=== PATIENT | female | born 1980 | race Hispanic/Latino ===

== ENCOUNTER 2017-09-10 12:55 | Emergency (ER) | payer SELFPAY ==
[~2017-09-10] VITALS: Ht 162.6 cm; Wt 94.3 kg
[~2017-09-10 12:55] MED LIST: Z.0.LISINOPRIL10 MG PO; Z.0.TIROSINT75 MCG PO; Z.0.XANAX2 MG PO
--- OUTSIDE RECORDS SUMMARY | 2017-09-10 12:57 | XMS REPORT ---
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 Allergies, Adverse Reactions, Alerts This patient has no known allergies or adverse reactions. Medications This patient has no known medications. Encounters Start Date/Time End Date/Time Encounter Type Admission Type Attending [facility] Facility Care Department Encounter ID 2017-05-09 00:00:00 2017-05-09 00:00:00 [facility]patient [facility] [id number]
[2017-09-10] MEDS ORDERED: ONDANSETRON HCL INJ 2 MG/ML VIAL IV STA (13:13)
[2017-09-10] MEDS ORDERED: SODIUM CHLORIDE 0.9% 1000ML 1,000 ML IV STA (13:13)
[2017-09-10] MEDS ORDERED: MORPHINE SULFATE 4 MG/ML SYR IV STA (13:13)
[2017-09-10 14:31] LABS: BASOPHILS # (AUTO) 0.1 (0.0-0.1); BASOPHILS % 1.1 % (0.0-1.0); EOSINOPHILS # (AUTO) 0.2 (0.0-0.4); EOSINOPHILS % 4.4 % (0.0-6.0); HEMATOCRIT 38.4 % (34.2-44.1); HEMOGLOBIN 12.5 g/dL (12.0-16.0); LYMPHOCYTES # (AUTO) 2.2 (1.0-3.2); LYMPHOCYTES % 40.1 % (18.0-39.1); MEAN CORPUSCULAR HEMOGLOBIN 29.3 pg (28-32); MEAN CORPUSCULAR HGB CONC 32.6 g/dL (31-35); MEAN CORPUSCULAR VOLUME 89.9 fL (81-99); MONOCYTES # (AUTO) 0.7 (0.2-0.8); MONOCYTES % 12.8 % (4.4-11.3); NEUTROPHILS # (AUTO) 2.3 (2.1-6.9); NEUTROPHILS % 41.1 % (38.7-80.0); PLATELET COUNT 210 x10e3/uL (140-360); RED BLOOD COUNT 4.27 x10e6/uL (3.6-5.1); RED CELL DISTRIBUTION WIDTH 14.6 % (11.7-14.4)
[2017-09-10 14:45] LABS: ALANINE AMINOTRANSFERASE 18 IU/L (0-55); ALBUMIN 3.4 g/dL (3.5-5.0); ALBUMIN/GLOBULIN RATIO 0.7 (0.8-2.0); ALKALINE PHOSPHATASE 106 IU/L (40-150); AMYLASE 114 U/L (25-125); ANION GAP 12.8 mmol/L (8-16); BLOOD UREA NITROGEN 6 mg/dL (7-26); BUN/CREATININE RATIO 8 (6-25); CALCIUM 8.6 mg/dL (8.4-10.2); CARBON DIOXIDE 21 mmol/L (22-29); CHLORIDE 106 mmol/L (98-107); CREATININE, SERUM 0.73 mg/dL (0.57-1.11); EST GLOMERULAR FILTRATION RATE > 60 ML/MIN (60-); GLUCOSE 196 mg/dL (74-118); LIPASE 59 U/L (8-78); POTASSIUM 3.8 mmol/L (3.5-5.1); SODIUM 136 mmol/L (136-145)
--- NOTE | 2017-09-10 15:02 | Diagnostic Imaging Report ---
PROCEDURE: CT ABDOMEN AND PELVIS WITHOUT CONTRAST TECHNIQUE: The abdomen and pelvis were scanned utilizing a multidetector helical scanner from the diaphragm to the lesser trochanter after the oral administration of water. No IV contrast was administered because of stone protocol. Coronal and sagittal multiplanar reformations were obtained. DLP: 767.7 mGy-cm COMPARISON: None. INDICATIONS: STONES KIDNEY, HEMATURIA FINDINGS: ABSENCE OF INTRAVENOUS CONTRAST DECREASES SENSITIVITY FOR DETECTION OF FOCAL LESIONS AND VASCULAR PATHOLOGY. LOWER THORAX: Normal. HEPATOBILIARY: No suspicious contour abnormalities. No biliary ductal dilatation. SPLEEN: No splenomegaly. PANCREAS: No suspicious contour abnormalities or ductal dilatation. ADRENALS: No adrenal nodules. KIDNEYS/URETERS: No hydronephrosis, stones, or suspicious contour abnormalities. PELVIC ORGANS/BLADDER: No bladder stones. A right sided tubal ligation clips is noted in the right adnexum. A second tubal ligation clips is noted in the right posterior pelvis (series 3 image 145), separate from the left adnexum. The left ovary is difficult to separate from the adjacent uterus in the absence of contrast. Multiple phleboliths in the pelvis. PERITONEUM / RETROPERITONEUM: No free air or fluid. LYMPH NODES: No lymphadenopathy. VESSELS: Unremarkable. GI TRACT: No distention or wall thickening. The appendix is normal. Post surgical changes related to gastric sleeve. Small hiatal hernia is noted containing a small portion of the gastric suture. BONES AND SOFT TISSUES: Fat-containing supraumbilical ventral hernia is located approximately 11-12 cm above the umbilicus. Hernia sac measures approximately 3.4 x 1.9 x 2.5 cm with 1.5 cm abdominal wall defect. IMPRESSION: 1. No nephrolithiasis. No acute non-contrast CT abnormalities. 2. Tubal ligation clip appears to have slipped off the left adnexa and is currently in the right pelvis. Consider counseling patient on alterative contraception. 3. Gastric sleeve. Small hiatal hernia. 4. Small fat containing supraumbilical ventral hernia. Dictated by: Luis Nguyen M.D. on 09/10/2017 at 15:11 Electronically approved by: Luis Nguyen M.D. on 09/10/2017 at 15:11
[2017-09-10 15:41] LABS: BILIRUBIN,URINE 1+ (NEGATIVE); KETONES,URINE NEGATIVE (NEGATIVE); LEUKOCYTE ESTERASE ,URINE TRACE (NEGATIVE); PROTEIN,URINE DIPSTICK NEGATIVE (NEGATIVE); URINE UROBILINOGEN 4 mg/dL (0.2 - 1)
[2017-09-10 15:43] LABS: CLARITY,URINE CLEAR (CLEAR); COLOR,URINE ORANGE (YELLOW); NITRITE,URINE POSITIVE (NEGATIVE)
[2017-09-10 16:00] LABS: BACTERIA,URINE MODERATE /HPF; EPITHELIAL CELLS,URINE MODERATE /LPF; WBC,URINE (MAN) 0-5 /HPF (0-5)
[2017-09-10] MEDS ORDERED: CEFTRIAXONE SOD 1 GM VIAL ONE (16:12)
[2017-09-10] MEDS ORDERED: CEFTRIAXONE SOD 1 GM VIAL IV ONE (16:15)
[2017-09-10] MEDS ORDERED: ULTRAM 50MG50 MG PO (16:26)
[2017-09-10] MEDS ORDERED: ZOFRAN ODT4 MG SL (16:27)
== END 2017-09-10 16:56 | disposition home or self-care (01) ==
LOC: ER 12:55
DX: R10.30 Lower abdominal pain, unspecified (principal); N10 Acute pyelonephritis; I10 Essential (primary) hypertension; E03.9 Hypothyroidism, unspecified; K44.9 Diaphragmatic hernia without obstruction or gangrene
CPT/HCPCS: 36415; 74176; 80053; 81001; 82150; 83690; 84702; 85025; 87086; 99284; J0696; J2405; J7030

== ENCOUNTER 2018-07-27 05:24 | Observation (INO) | payer SELFPAY ==
[2018-07-26 17:08] LABS: BASOPHILS # (AUTO) 0.1 (0.0-0.1); EOSINOPHILS # (AUTO) 0.3 (0.0-0.4); EOSINOPHILS % 3.9 % (0.0-6.0); HEMATOCRIT 37.3 % (34.2-44.1); HEMOGLOBIN 12.5 g/dL (12.0-16.0); LYMPHOCYTES # (AUTO) 3.4 (1.0-3.2); LYMPHOCYTES % 47.3 % (18.0-39.1); MEAN CORPUSCULAR HEMOGLOBIN 26.9 pg (28-32); MEAN CORPUSCULAR HGB CONC 33.5 g/dL (31-35); MEAN CORPUSCULAR VOLUME 80.4 fL (81-99); MONOCYTES # (AUTO) 0.6 (0.2-0.8); MONOCYTES % 8.8 % (4.4-11.3); NEUTROPHILS # (AUTO) 2.8 (2.1-6.9); NEUTROPHILS % 38.9 % (38.7-80.0); PLATELET COUNT 273 x10e3/uL (140-360); RED BLOOD COUNT 4.64 x10e6/uL (3.6-5.1); RED CELL DISTRIBUTION WIDTH 14.1 % (11.7-14.4)
[2018-07-26 17:25] LABS: ALANINE AMINOTRANSFERASE 32 IU/L (0-55); ALBUMIN 3.5 g/dL (3.5-5.0); ALBUMIN/GLOBULIN RATIO 0.7 (0.8-2.0); ALKALINE PHOSPHATASE 154 IU/L (40-150); ANION GAP 16.8 mmol/L (8-16); BLOOD UREA NITROGEN 6 mg/dL (7-26); BUN/CREATININE RATIO 8 (6-25); CALCIUM 9.5 mg/dL (8.4-10.2); CARBON DIOXIDE 22 mmol/L (22-29); CHLORIDE 99 mmol/L (98-107); CREATININE, SERUM 0.79 mg/dL (0.57-1.11); EST GLOMERULAR FILTRATION RATE > 60 ML/MIN (60-); GLUCOSE 325 mg/dL (74-118); POTASSIUM 3.8 mmol/L (3.5-5.1); SODIUM 134 mmol/L (136-145)
[~2018-07-27] VITALS: Ht 162.6 cm; Wt 100.7 kg
[~2018-07-27 05:24] MED LIST changes: +COQ10 PO; +MAGNESIUM27 MG; +MULTI-VITAMIN1 EACH; +OMEGA 3 6 9 PO; +TURMERIC1 GM PO; +ULTRAM 50MG50 MG PO; +ZOFRAN ODT4 MG SL
[2018-07-27] MEDS ORDERED: METHYLENE BLUE 1% INJ 10 ML VIAL INJ ONE (06:49)
[2018-07-27] MEDS ORDERED: BUPIVACAINE 0.5%/EPI 30 ML SDV INJ ONE (06:49)
[2018-07-27] MEDS ORDERED: BUPIVACAINE 0.25%/EPI 30ML SDV INJ ONE (06:49)
[2018-07-27] MEDS ORDERED: VASOPRESSIN INJ 20 UNIT/ML VIAL INJ ONE (06:56)
[2018-07-27] MEDS ORDERED: INSULIN REGULAR, HUMAN 100 UNIT/1 ML 3ML VIAL ONE ×2 (06:59→10:35)
[2018-07-27] MEDS ORDERED: SODIUM CHLORIDE 0.9% 100 ML ONE (07:12)
[2018-07-27] MEDS ORDERED: FENTANYL CITRATE/PF 100MCG/2 ML INJ ONE ×2 (10:22→19:51)
[2018-07-27] MEDS ORDERED: MEPERIDINE HCL INJ 50 MG/ML INJ ONE (10:48)
[2018-07-27] MEDS ORDERED: PROMETHAZINE 12.5MG/ NACL 0.9% 12.5 MG/50 ML BAG IV PRN (11:00)
[2018-07-27 11:20] VITALS: BP 122/75
--- NOTE | 2018-07-27 11:20 | NUR ---
Received patient from PACU via stretcher. AAOX4 to time, person, place, situation. Respirations even and unlabored. O2 2L NC. Lower abdomen site clean, dry, and intact. Well approximated. No drainage noted. Oriented patient to room. Instructed to use call light for assistance. Voiced understanding.
[2018-07-27] MEDS: LACTATED RINGER'S 1,000 ML IV SCH ×2 (11:30→19:13)
[2018-07-27 12:00] VITALS: BP 122/75
[2018-07-27] MEDS: KETOROLAC TROMETHAMINE 30 MG/ML VIAL IM PRN (12:00)
[2018-07-27 12:29] VITALS: BP 122/75
--- NOTE | 2018-07-27 13:33 | Operative Report ---
DATE OF PROCEDURE: July 27, 2018 PREOPERATIVE DIAGNOSIS: Requesting reversal of tubal ligation. POSTOPERATIVE DIAGNOSIS: Requesting reversal of tubal ligation. OPERATION PERFORMED: Reversal of bilateral tubal ligation. COMPLICATIONS: None. ESTIMATED BLOOD LOSS: 50 mL. PROCEDURE: The patient was taken to the OR where general anesthesia was placed. She was prepped and draped in the normal sterile fashion and placed in the dorsal lithotomy position. After placing a HUMI self-retaining uterine manipulator through the cervix and connecting it to diluted methylene blue, balloon was inflated with 10 mL of air. Gloves were changed, and a small Pfannenstiel skin incision was made suprapubically. Subcutaneous tissue was dissected with a Bovie until the rectus fascia was reached and was opened in the midline. The same was repeated on the other side. The upper and lower flaps of the fascia were dissected off the underlying muscles using both sharp and blunt dissection. The midline was identified and the peritoneum entered using the stretch of 2 fingers. Chang retractor was placed inside the pelvis, and the abdominal contents were retracted upwards using moist laps. Two Babcocks were applied on the 2 ends of the right tube, and a Filshie clip in between was noted. Using the Bovie on the mesosalpinx, the Filshie clip was freed and removed. The left tube showed evidence of scarring and blockage but no evidence of the Filshie clip, which would not be seen anywhere in the vicinity of the uterus. The medial portion of the fallopian tube was opened with microscopic scissors, and methylene blue was injected and free flow of the methylene blue was noted from the medial portion of the right tube. The left tube blockage also was excised, and a lacrimal duct dilator was passed through the fimbriated end into the medial portion of the fallopian tube. The fallopian tube was repaired using Prolene 6-0. Sutures were applied at 6 o'clock, 3 and 9 o'clock, and another suture was placed at 12 o'clock. The mesosalpinx was closed with the same material. Removal of the lacrimal duct dilator was performed, and with injection of the methylene blue, the dye came through the fimbriated end of the right tube. Now attention was made to the left tube where the blockage on the medial portion of the tube was excised, methylene blue injected, and free flow of the methylene blue was noted. Pitressin was injected in the mesosalpinx, and that was also injected on the right tube, before manipulating either tube, to achieve hemostasis. Following this, the left lateral part of the tube blockage was excised with the microscopic scissors, and the lumen of the tube was noted and the 2 ends of the tubes were approximated by Prolene 6-0 sutures. First suture was applied at 6 o'clock, and then 3 other sutures were applied at 3, 9 and 12 o'clock on the fallopian tube. Also the mesosalpinx was closed with the same material. Suction irrigation of the peritoneal cavity with warm saline. Injection of the dye showed free flow of the dye from the left fimbriated end of the tube. Following this, the rectus fascia approximated using PDS 0, subcutaneous fat was approximated with catgut 2-0 sutures, and the skin was closed with Monocryl 4-0 and Dermabond was applied. Patient tolerated the procedure well. Marcaine with epinephrine was injected subcutaneously. Laps, instrument and needle counts were correct x2 at the end of the procedure. Job#: [id number]
[2018-07-27] MEDS: MEPERIDINE HCL INJ 25 MG/ML VIAL IV PRN ×3 (13:58→22:07)
--- NOTE | 2018-07-27 14:00 | NUR ---
Patient voided. Denies any discomfort.
[2018-07-27] MEDS ORDERED: DEXTROSE 50% SYRINGE 50 ML IV PRN (15:00)
[2018-07-27 16:52] VITALS: BP 110/55
[2018-07-27] MEDS: INSULIN REGULAR, HUMAN 100 UNIT/1 ML 3ML VIAL SQ SCH ×2 (17:03→21:00)
--- NOTE | 2018-07-27 18:30 | NUR ---
Resting in bed, family at bedside. No s/s of acute distress noted. Report to be given to oncoming nurse.
--- NOTE | 2018-07-27 19:00 | NUR ---
REPORT RECEIVED FROM OFF GOING NURSE, PT RESTING IN BED ALERT AND ORIENTED, BED LOCKED AND LOW, FAMILY AT BEDSIDE, IV INFUSING PER ORDER, INCISION TO LOWER ABD APPROXIMATED WITH NO COMPLICATIONS NOTED, CALL LIGHT IN REACH, INSTRUCTED TO CALL WITH NEEDS
[2018-07-27] MEDS ORDERED: ROCURONIUM BROMIDE 10 MG/ML 5ML VIAL ONE (19:17)
[2018-07-27] MEDS ORDERED: SEVOFLURANE INHAL SOLN 250 ML PEN BTL ONE (19:17)
[2018-07-27] MEDS ORDERED: CEFAZOLIN SOD 1 GM VIAL ONE (19:17)
[2018-07-27] MEDS ORDERED: NEOSTIGMINE 5 MG/5ML SYR ONE (19:17)
[2018-07-27] MEDS ORDERED: ACETAMINOPHEN 1000 MG/100 ML IV ONE (19:17)
[2018-07-27] MEDS ORDERED: KETOROLAC TROMETHAMINE 30 MG/ML VIAL ONE (19:17)
[2018-07-27] MEDS ORDERED: GLYCOPYRROLATE INJ 1MG/ 5 ML SYR ONE (19:17)
[2018-07-27] MEDS ORDERED: LIDOCAINE HCL 2% LOCAL INJ 5 ML SDV VIAL INJ ONE (19:17)
[2018-07-27] MEDS ORDERED: PROPOFOL IV EMULSION 10 MG/ML 20 ML VIAL ONE (19:17)
[2018-07-27] MEDS ORDERED: ONDANSETRON HCL INJ 2 MG/ML VIAL ONE (19:17)
[2018-07-27] MEDS ORDERED: MIDAZOLAM HCL 2 MG/2 ML VIAL ONE (19:51)
[2018-07-27 20:00] VITALS: BP 101/61
--- NOTE | 2018-07-27 21:30 | NUR ---
PRN GIVEN FOR TEMP OF 100.9
[2018-07-27] MEDS: ACETAMINOPHEN 325 MG TAB PO PRN (21:32)
--- NOTE | 2018-07-27 22:08 | NUR ---
PRN GIVEN FOR PAIN
[2018-07-28] VITALS: BP 93/57
[2018-07-28] MEDS: MEPERIDINE HCL INJ 25 MG/ML VIAL IV PRN ×4 (02:07→14:16)
[2018-07-28] MEDS: LACTATED RINGER'S 1,000 ML IV SCH ×2 (02:08→10:12)
--- NOTE | 2018-07-28 02:15 | NUR ---
PRN GIVEN FOR PAIN
[2018-07-28 04:00] VITALS: BP 115/65
[2018-07-28] MEDS ORDERED: LEVOTHYROXINE SODIUM 75 MCG TAB PO SCH (06:00)
[2018-07-28] MEDS ORDERED: NON-FORMULARY MEDICATION (Levothyroxine Sodium (Tirosint) 75 MCG) PO SCH (06:00)
--- NOTE | 2018-07-28 06:28 | NUR ---
PRN GIVEN FOR PAIN , PT RESTING IN BED ALERT AND ORIENTED, IV INFUSING PER ORDER, BED LOCKED AND LOW, NO DISTRESS NOTED, PT DENIES NEEDS, MOTHER WANTING TO ASSIST PT WITH BED BATH, SUPPLIES GIVEN, CALL LIGHT IN REACH, INSTRUCTED TO CALL WITH NEEDS
[2018-07-28] MEDS: KETOROLAC TROMETHAMINE 30 MG/ML VIAL IM PRN (07:39)
[2018-07-28 08:03] VITALS: BP 107/56
[2018-07-28 08:20] VITALS: BP 107/56
[2018-07-28 08:22] VITALS: BP 121/58
[2018-07-28] MEDS: INSULIN REGULAR, HUMAN 100 UNIT/1 ML 3ML VIAL SQ SCH ×3 (08:30→15:18)
[2018-07-28] MEDS ORDERED: ALPRAZOLAM 1 MG TAB PO SCH (09:00)
[2018-07-28] MEDS ORDERED: NON-FORMULARY MEDICATION (Alprazolam (Xanax) 2 MG) PO SCH (09:00)
[2018-07-28] MEDS ORDERED: MULTIVITAMINS/MINERALS TAB PO SCH (09:00)
[2018-07-28 12:03] VITALS: BP 111/69
[2018-07-28] MEDS ORDERED: TYLENOL WITH C1 EACH PO (14:58)
[2018-07-28] MEDS ORDERED: METFORMIN HCL500 MG PO (14:59)
--- NOTE | 2018-07-28 15:00 | NUR ---
md mendoza rounded. ok discharge at this time
--- NOTE | 2018-07-28 15:18 | NUR ---
discharge instructions and prescriptions given. pt verbalized understanding. iv dc pressure dressing applied and taped. pt is receiving insulin at this time for a 330 and eating a sandwich before going home
--- NOTE | 2018-07-28 15:30 | NUR ---
pt off unit via wheel chair to home
== END 2018-07-28 15:25 | disposition home or self-care (01) ==
LOC: OR 05:24 → PACU V 10:12 → MED/SURG 11:31
PROVIDERS: ADMIT Obstetrics & Gynecology; ATTEND Obstetrics & Gynecology
DX: Z31.0 Encounter for reversal of previous sterilization (principal); Z01.812 Encounter for preprocedural laboratory examination; Z28.21 Immunization not carried out because of patient refusal; F41.9 Anxiety disorder, unspecified; E03.9 Hypothyroidism, unspecified; Z86.39 Personal history of other endocrine, nutritional and metabolic disease
CPT/HCPCS: 36415 ×3; 58750; 80053; 81025; 82948 ×2; 85025; G0378 ×2; J0131; J0690; J1817; J1885 ×2; J2001; J2175 ×3; J2250; J2405; J2704; J3490; J7050; J7120 ×2

== ENCOUNTER 2018-09-12 17:34 | Emergency (ER) | payer SELFPAY ==
[~2018-09-12] VITALS: Ht 162.6 cm; Wt 98.9 kg
[~2018-09-12 17:34] MED LIST changes: +METFORMIN HCL500 MG PO; +TYLENOL WITH C1 EACH PO
[2018-09-12] MEDS ORDERED: ASPIRIN 81 MG CHEW TAB PO ONE (18:15)
[2018-09-12 18:20] LABS: BASOPHILS # (AUTO) 0.1 (0.0-0.1); BASOPHILS % 0.7 % (0.0-1.0); EOSINOPHILS # (AUTO) 0.2 (0.0-0.4); EOSINOPHILS % 2.2 % (0.0-6.0); HEMATOCRIT 36.6 % (34.2-44.1); HEMOGLOBIN 12.5 g/dL (12.0-16.0); LYMPHOCYTES % 41.5 % (18.0-39.1); MEAN CORPUSCULAR HEMOGLOBIN 26.7 pg (28-32); MEAN CORPUSCULAR HGB CONC 34.2 g/dL (31-35); MONOCYTES # (AUTO) 0.5 (0.2-0.8); MONOCYTES % 7.4 % (4.4-11.3); NEUTROPHILS # (AUTO) 3.5 (2.1-6.9); NEUTROPHILS % 47.9 % (38.7-80.0); PLATELET COUNT 284 x10e3/uL (140-360); RED BLOOD COUNT 4.69 x10e6/uL (3.6-5.1); RED CELL DISTRIBUTION WIDTH 15.6 % (11.7-14.4)
[2018-09-12 18:29] LABS: INR 0.81
[2018-09-12 18:30] LABS: PARTIAL THROMBOPLASTIN TIME 31.5 seconds (23.8-35.5)
[2018-09-12] MEDS ORDERED: KETOROLAC TROMETHAMINE 30 MG/ML VIAL IV ONE (18:30)
[2018-09-12 18:39] LABS: ALANINE AMINOTRANSFERASE 61 IU/L (0-55); ALBUMIN 3.6 g/dL (3.5-5.0); ALBUMIN/GLOBULIN RATIO 0.9 (0.8-2.0); ALKALINE PHOSPHATASE 118 IU/L (40-150); BLOOD UREA NITROGEN 9 mg/dL (7-26); BUN/CREATININE RATIO 12 (6-25); CALCIUM 9.5 mg/dL (8.4-10.2); CARBON DIOXIDE 22 mmol/L (22-29); CHLORIDE 102 mmol/L (98-107); CREATINE KINASE 96 IU/L (29-168); CREATININE, SERUM 0.77 mg/dL (0.57-1.11); EST GLOMERULAR FILTRATION RATE > 60 ML/MIN (60-); GLUCOSE 266 mg/dL (74-118); SODIUM 138 mmol/L (136-145)
--- NOTE | 2018-09-12 18:40 | Diagnostic Imaging Report ---
EXAM: XR CHEST 1 VIEW DATE: 09/12/2018 6:08 PM INDICATION: pain COMPARISON: None FINDINGS: Lines and Tubes: None Heart and Mediastinum: No acute cardiomediastinal findings. Lungs and Pleura: No significant pleural effusion, pneumothorax, or focal consolidation. Bones and Soft Tissues: No acute findings. IMPRESSION: 1. No acute cardiopulmonary findings. Signed by: Dr. Minesh Herrera MD on 09/12/2018 6:37 PM
--- NOTE | 2018-09-12 19:01 | NUR ---
WALKING ROUND WITH ADITYA SANCHEZ
[2018-09-12 22:21] LABS: BILIRUBIN,URINE NEGATIVE (NEGATIVE); CLARITY,URINE CLEAR (CLEAR); COLOR,URINE YELLOW (YELLOW); KETONES,URINE 1+ (NEGATIVE); LEUKOCYTE ESTERASE ,URINE NEGATIVE (NEGATIVE); NITRITE,URINE NEGATIVE (NEGATIVE); PROTEIN,URINE DIPSTICK NEGATIVE (NEGATIVE); URINE UROBILINOGEN 0.2 mg/dL (0.2 - 1)
[2018-09-12 22:27] LABS: BACTERIA,URINE MANY /HPF; EPITHELIAL CELLS,URINE MODERATE /LPF; RBC,URINE 0-5 /HPF (0-5); WBC,URINE (MAN) 0-5 /HPF (0-5)
[2018-09-12] MEDS ORDERED: INSULIN REGULAR, HUMAN 100 UNIT/1 ML 3ML VIAL SQ ONE (22:30)
--- NOTE | 2018-09-12 22:33 | NUR ---
BG 195, ETHEL QUESADA INFORMED ME TO DISREGARD ORDERS FOR INSULIN ADMINISTRATION
== END 2018-09-12 22:41 | disposition home or self-care (01) ==
LOC: ER 17:34
DX: R07.89 Other chest pain (principal); F41.1 Generalized anxiety disorder; E11.65 Type 2 diabetes mellitus with hyperglycemia; I10 Essential (primary) hypertension
CPT/HCPCS: 36415; 71045; 80053; 81001; 82550; 82553; 82948; 83880; 84443; 84484; 85025; 85610; 85730; 93005; 99284; J1885

== ENCOUNTER 2022-02-11 10:45 | Emergency (ER) | payer OTHER ==
[~2022-02-11] VITALS: Ht 165.1 cm; Wt 102.1 kg
[2022-02-11] MEDS ORDERED: ONDANSETRON HCL INJ 2MG/ML 2ML 2 MG/ML VIAL IV STA (10:58)
[2022-02-11] MEDS ORDERED: Morphine 4mg INJECTION 4 MG/ML INJ IV ONE (11:00)
[2022-02-11] MEDS ORDERED: SODIUM CHLORIDE 0.9% 1000ML 1,000 ML IV SCH ×2 (11:00)
[2022-02-11] MEDS ORDERED: SODIUM CHLORIDE FLUSH 10 ML SYR IV PRN (11:00)
[2022-02-11 11:30] LABS: BASOPHILS # (AUTO) 0.1 (0.0-0.1); BASOPHILS % 0.4 % (0.0-1.0); EOSINOPHILS # (AUTO) 0.1 (0.0-0.4); EOSINOPHILS % 0.8 % (0.0-6.0); HEMATOCRIT 39.6 % (34.2-44.1); HEMOGLOBIN 13.3 g/dL (12.0-16.0); LYMPHOCYTES # (AUTO) 2.2 (1.0-3.2); LYMPHOCYTES % 13.6 % (18.0-39.1); MEAN CORPUSCULAR HEMOGLOBIN 30.6 pg (28-32); MEAN CORPUSCULAR HGB CONC 33.6 g/dL (31-35); MEAN CORPUSCULAR VOLUME 91.2 fL (81-99); MONOCYTES # (AUTO) 1.2 (0.2-0.8); MONOCYTES % 7.3 % (4.4-11.3); NEUTROPHILS # (AUTO) 12.3 (2.1-6.9); NEUTROPHILS % 77.5 % (38.7-80.0); PLATELET COUNT 302 x10e3/uL (140-360); RED BLOOD COUNT 4.34 x10e6/uL (3.6-5.1); RED CELL DISTRIBUTION WIDTH 13.2 % (11.7-14.4)
[2022-02-11 11:42] LABS: INR 0.83; PROTHROMBIN TIME 12.2 seconds (11.9-14.5)
[2022-02-11 11:51] LABS: ALBUMIN 3.6 g/dL (3.5-5.0); ALBUMIN/GLOBULIN RATIO 0.7 (0.8-2.0); ANION GAP 23.9 mmol/L (8-16); CALCIUM 9.7 mg/dL (8.4-10.2); CREATININE, SERUM 0.77 mg/dL (0.57-1.11); POTASSIUM 3.9 mmol/L (3.5-5.1)
[2022-02-11 11:57] LABS: HCG,QUANTITATIVE 39.98 mIU/mL (0-10)
[2022-02-11 12:08] LABS: AMPHETAMINES SCREEN,URINE NEGATIVE (NEGATIVE); BENZODIAZEPINES SCREEN,URINE NEGATIVE (NEGATIVE); CLARITY,URINE CLEAR (CLEAR); COLOR,URINE YELLOW (YELLOW); KETONES,URINE NEGATIVE (NEGATIVE); LEUKOCYTE ESTERASE ,URINE NEGATIVE (NEGATIVE); NITRITE,URINE NEGATIVE (NEGATIVE); PHENCYCLIDINE SCREEN,URINE NEGATIVE (NEGATIVE); PROTEIN,URINE DIPSTICK NEGATIVE (NEGATIVE); URINE UROBILINOGEN 0.2 mg/dL (0.2 - 1)
[2022-02-11] MEDS ORDERED: IOPAMIDOL 370 MG/ML 100 ML INFUS..BTL INJ ONE (12:10)
[2022-02-11] MEDS ORDERED: ONDANSETRON ODT4 MG PO (15:00)
[2022-02-11] MEDS ORDERED: NAPROSYN500 MG PO (15:00)
[2022-02-11] MEDS ORDERED: DICYCLOMINE HCL20 MG PO (15:00)
[2022-02-11 15:18] VITALS: BP 134/88
== END 2022-02-11 15:23 | disposition home or self-care (01) ==
LOC: ER 10:52
DX: R10.31 Right lower quadrant pain (principal); K76.0 Fatty (change of) liver, not elsewhere classified; R50.9 Fever, unspecified; E03.9 Hypothyroidism, unspecified; F41.9 Anxiety disorder, unspecified; F43.10 Post-traumatic stress disorder, unspecified; R94.31 Abnormal electrocardiogram [ECG] [EKG]; Z20.822 Contact with and (suspected) exposure to COVID-19; Z98.84 Bariatric surgery status
CPT/HCPCS: 36415; 71045; 74177; 80053; 80307; 81001; 83605; 84702; 85025; 85610; 85730; 87040; 87086; 93005; 99284; J2270; J2405; J2543; J7030; Q9967; U0002

== ENCOUNTER 2022-08-27 21:45 | Emergency (ER) | payer OTHER ==
[~2022-08-27] VITALS: Ht 165.1 cm; Wt 97.5 kg
[~2022-08-27 21:45] MED LIST changes: +DICYCLOMINE HCL20 MG PO; +NAPROSYN500 MG PO; +ONDANSETRON ODT4 MG PO
[2022-08-27 23:10] LABS: CLARITY,URINE SL CLOUDY (CLEAR); COLOR,URINE PINK (YELLOW); KETONES,URINE NEGATIVE (NEGATIVE); LEUKOCYTE ESTERASE ,URINE SMALL (NEGATIVE); NITRITE,URINE NEGATIVE (NEGATIVE); PROTEIN,URINE DIPSTICK 2+ (NEGATIVE); URINE UROBILINOGEN 0.2 mg/dL (0.2 - 1)
[2022-08-27 23:14] LABS: BACTERIA,URINE FEW /HPF; EPITHELIAL CELLS,URINE MODERATE /LPF; RBC,URINE 21-50 /HPF (0-5)
[2022-08-27] MEDS ORDERED: CEFDINIR300 MG PO (23:40)
[2022-08-27] MEDS ORDERED: PYRIDIUM200 MG PO (23:40)
[2022-08-27 23:53] VITALS: BP 115/84
== END 2022-08-27 23:50 | disposition home or self-care (01) ==
LOC: ER 23:16
DX: R30.0 Dysuria (principal); N30.91 Cystitis, unspecified with hematuria; R10.30 Lower abdominal pain, unspecified; D64.9 Anemia, unspecified; E03.9 Hypothyroidism, unspecified; F41.9 Anxiety disorder, unspecified; F43.10 Post-traumatic stress disorder, unspecified; Z98.84 Bariatric surgery status
CPT/HCPCS: 81001; 87086; 87186; 99282